=== PATIENT | female | born 2000 | race African-American/Black ===

== ENCOUNTER 2019-06-21 04:24 | Emergency (ER) | payer SELFPAY ==
[~2019-06-21] VITALS: Ht 167.6 cm; Wt 59.0 kg
[2019-06-21 04:29] VITALS: BP 120/83
--- NOTE | 2019-06-21 05:39 | PHYS DOC ---
Past Medical History Past Medical History: No Pertinent History Past Surgical History: No Surgical History Alcohol Use: Occasionally Drug Use: None Adult General Chief Complaint Chief Complaint: ANKLE PROBLEM HPI HPI Patient is a 18 year old f with cc of ankle sprain. Patient slipped going down some wet stairs twisted the ankle pain is lateral malleolus area mild nonradiating Allergies Allergies Allergies Coded Allergies Type Severity Reaction Last Updated Verified No Known Drug Allergies 06/21/19 No Physical Exam Physical Exam Constitutional: Well developed, well nourished, no acute distress, non-toxic appearance. [] HENT: Normocephalic, atraumatic, bilateral external ears normal, oropharynx moist, no oral exudates, nose normal. [] Eyes: PERRLA, EOMI, conjunctiva normal, no discharge. [] Neck: Normal range of motion, no tenderness, supple, no stridor. [] Pulmonary: Normal respiratory effort no increased work of breathing no obvious chest wall trauma Skin: Warm, dry, no erythema, no rash. [] Back: No tenderness, no CVA tenderness. [] Extremities: There is tenderness to palpation noted of the right lateral malleolus and the ATFL area No fifth metatarsal tenderness Neurologic: Alert and oriented X 3, normal motor function, normal sensory function, no focal deficits noted. [] Psychologic: Affect normal, judgement normal, mood normal. [] Current Patient Data Vital Signs Vital Signs Date Time Temp Pulse Resp B/P (MAP) Pulse Ox O2 Delivery O2 Flow Rate FiO2 06/21/19 04:29 98.8 119 20 120/83 (95) 99 Room Air 98.8 EKG EKG [] Radiology/Procedures Radiology/Procedures [] Course & Med Decision Making Course & Med Decision Making Pertinent Labs and Imaging studies reviewed. (See chart for details) []My read of the x-ray was negative acute I do not see a fracture think it's a sprain recommended ice rest gradual return to activity return precautions discussed Hoa Disclaimer Dragchelsey Disclaimer This electronic medical record was generated, in whole or in part, using a voice recognition dictation system. Departure Departure Impression: Primary Impression: Ankle sprain Disposition: HOME, SELF-CARE Condition: STABLE Patient Instructions: Ankle Sprain, [id number] PAUL ORDONEZ MD Jun 21, 2019 05:39
--- NOTE | 2019-06-21 06:22 | RAD ---
RIGHT ANKLE AP, LATERAL, OBLIQUE Clinical Indication: Ankle trauma, pain anterior half of the ankle. Comparison: None. Findings: There is no acute fracture or dislocation. Mineralization is normal. Joint spaces are maintained. The ankle mortise is intact. There is no ankle joint effusion. There is no radiographically apparent soft tissue swelling. IMPRESSION: No acute fracture. Electronically signed by: Don Crews MD (06/21/2019 6:19 AM) [id number]
== END 2019-06-21 05:48 | disposition home or self-care (01) ==
LOC: ER 04:24
DX: S93.491A Sprain of other ligament of right ankle, initial encounter (principal); X50.1XXA Overexertion from prolonged static or awkward postures, initial encounter; Y93.89 Activity, other specified; Y92.89 Other specified places as the place of occurrence of the external cause; Y99.8 Other external cause status
CPT/HCPCS: 73610; 99284

== ENCOUNTER 2020-09-18 09:39 | Emergency (ER) | payer SELFPAY ==
[~2020-09-18] VITALS: Ht 167.6 cm; Wt 61.3 kg
[2020-09-18 12:15] VITALS: BP 143/72
--- NOTE | 2020-09-18 12:33 | ED.ADGEN ---
Past Medical History Past Medical History: No Pertinent History Past Surgical History: No Surgical History Smoking Status: Current Every Day Smoker Alcohol Use: Occasionally Drug Use: None General Adult EDM: Chief Complaint: EARACHE/EAR PAIN HPI: HPI: Patient is a 19 year old AA female who presents emergency department with complaints of pain in her left ear since 2:00 this morning. She denies any discharge or bleeding from the ear. She denies any tinnitus, but reports mild decreased hearing. She reports that her ear feels full. She denies any fever, cough, shortness of breath, body aches, rash, sore throat, nasal congestion, nausea, vomiting, diarrhea, abdominal pain, headache, or dizziness. She denies any alleviating or exacerbating factors. She currently rates pain a 5 out of 10 on the pain scale. Review of Systems: Review of Systems: Complete ROS is negative unless otherwise noted in HPI. Allergies: Allergies: Allergies Coded Allergies Type Severity Reaction Last Updated Verified No Known Drug Allergies 06/21/19 No Physical Exam: PE: See Above Constitutional: Well developed, well nourished, no acute distress, ill appearance. [] HENT: Normocephalic, atraumatic, bilateral external ears normal, bilateral TMs normal, posterior pharynx normal, oropharynx moist, no oral exudates, nose normal. [] Eyes: PERRLA, EOMI, conjunctiva normal, no discharge. [] Neck: Normal range of motion, no tenderness, supple, no stridor. [] Cardiovascular:Heart rate regular rhythm Lungs & Thorax: Respirations even and unlabored, no retractions, no respiratory distress [] Skin: Warm, dry, no erythema, no rash. [] Extremities: No cyanosis, ROM intact Neurologic: Alert and oriented X 3, no focal deficits noted. [] Psychologic: Affect normal, judgement normal, mood normal. [] EKG: EKG: [] Heart Score: Risk Factors: Risk Factors: DM, Current or recent (<one month) smoker, HTN, HLP, family history of CAD, obesity. Risk Scores: Score 0 - 3: 2.5% MACE over next 6 weeks - Discharge Home Score 4 - 6: 20.3% MACE over next 6 weeks - Admit for Clinical Observation Score 7 - 10: 72.7% MACE over next 6 weeks - Early Invasive Strategies Radiology/Procedures: Radiology/Procedures: [] Course & Med Decision Making: Course & Med Decision Making Pertinent Labs and Imaging studies reviewed. (See chart for details) [] Dragon Disclaimer: Hoa Disclaimer: This electronic medical record was generated, in whole or in part, using a voice recognition dictation system. Departure Departure Impression: Primary Impression: Otalgia, left ear Additional Impression: Acute dysfunction of eustachian tube Disposition: 01 DC HOME SELF CARE/HOMELESS Condition: STABLE Referrals: NO PCP (PCP) Patient Instructions: Otalgia-Brief Additional Instructions: Recommend over the counter Flonase (fluticasone) nasal spray 2 sprays each nostril once daily in the morning, you may also take 10 mg of generic Zyrtec (cetirizine) or Claritin at bedtime. Tylenol or ibuprofen as needed for pain/fever. Increase clear fluids. Avoid triggers such as smoke, fragrance, dust, and pollen. Follow-up with your primary care doctor in 1 to 2 days, return to the ER if symptoms worsen. Problem Qualifiers Additional Impression: Acute dysfunction of eustachian tube Laterality: left Qualified Codes: H69.82 - Other specified disorders of eustachian tube, left ear [facility] OT Sep 18, 2020 12:33
== END 2020-09-18 12:42 | disposition home or self-care (01) ==
LOC: ER 09:39
DX: H69.82 Other specified disorders of Eustachian tube, left ear (principal); H92.02 Otalgia, left ear; F17.200 Nicotine dependence, unspecified, uncomplicated
CPT/HCPCS: 99283